=== PATIENT | male | born 1965 | race Caucasian/White ===

== ENCOUNTER 2016-08-18 06:27 | Emergency (ER) | payer BC ==
[~2016-08-18] VITALS: Ht 162.6 cm; Wt 77.7 kg
[2016-08-18 09:00] VITALS: BP 118/79
[2016-08-18] MEDS ORDERED: NAPROXEN500 MG PO (09:09)
[2016-08-18] MEDS ORDERED: FLEXERIL10 MG PO (09:09)
== END 2016-08-18 09:28 | disposition home or self-care (01) ==
LOC: EME 06:27
DX: S46.001A Unspecified injury of muscle(s) and tendon(s) of the rotator cuff of right shoulder, initial encounter (principal); X58.XXXA Exposure to other specified factors, initial encounter
CPT/HCPCS: 73030; 99281; 99283; J1885